=== PATIENT | male | born 1985 | race Caucasian/White ===

== ENCOUNTER → 2018-12-10 | Outpatient (CLI) | payer OTHER ==
[~2018-12-10] MED LIST: NKHM PO
== END | disposition home or self-care (01) ==
LOC: US 16:17
DX: N50.811 Right testicular pain (principal)

== ENCOUNTER → 2024-08-11 | Outpatient (CLI) | payer OTHER | END | disposition home or self-care (01) | LOC: MRI 07-30 13:00 | PROVIDERS: ATTEND Nurse Practitioner Family | DX: M51.16 Intervertebral disc disorders with radiculopathy, lumbar region (principal); M48.061 Spinal stenosis, lumbar region without neurogenic claudication ==